=== PATIENT | male | born 1970 | race Caucasian/White ===

== ENCOUNTER 2017-11-07 04:11 | Emergency (ER) | payer BC ==
[2017-11-07 04:19] VITALS: BP 167/97; PULSE 76; RESP 16; TEMP 99.1
--- NOTE | 2017-11-07 04:38 | XR ---
EXAM: XR Chest, 2 Views CLINICAL HISTORY: Reason: Pain TECHNIQUE: Frontal and lateral views of the chest. COMPARISON: No relevant prior studies available. FINDINGS: Lungs: Unremarkable. No consolidation. Pleural space: Unremarkable. No pneumothorax. Heart: Unremarkable. No cardiomegaly. Mediastinum: Unremarkable. Bones/joints: Unremarkable. IMPRESSION: Normal chest x-rays.
--- NOTE | 2017-11-07 04:42 | ED ---
General Adult HPI - General Chief complaint: Fall Stated complaint: fall,arm/rib injury Time Seen by Provider: 11/07/17 04:40 Source: patient, RN notes reviewed, old records reviewed Mode of arrival: ambulatory Limitations: no limitations - History of Present Illness Initial comments: This is a 47-year-old male status post fall fall with left-sided rib pain. No loss of consciousness about is a no significant source of breath left-sided rib pain currently. No recent travel or known sick contacts - Related Data Allergies Allergy/AdvReac Type Severity Reaction Status Date / Time No Known Allergies Allergy Verified 11/07/17 04:19 Review of Systems ROS Statement: Those systems with pertinent positive or pertinent negative responses have been documented in the HPI. ROS Other: All systems not noted in ROS Statement are negative. Past Medical History Past Medical History: No Reported History History of Any Multi-Drug Resistant Organisms: None Reported Past Surgical History: Hernia Repair Past Psychological History: No Psychological Hx Reported Smoking Status: Former smoker Past Alcohol Use History: None Reported Past Drug Use History: Marijuana General Exam - General Exam Comments Initial Comments: Left rib pain Limitations: no limitations General appearance: alert, in no apparent distress Head exam: Present: atraumatic, normocephalic, normal inspection Eye exam: Present: normal appearance, PERRL, EOMI. Absent: scleral icterus, conjunctival injection, periorbital swelling ENT exam: Present: normal exam, mucous membranes moist Neck exam: Present: normal inspection. Absent: tenderness, meningismus, lymphadenopathy Respiratory exam: Present: normal lung sounds bilaterally. Absent: respiratory distress, wheezes, rales, rhonchi, stridor Cardiovascular Exam: Present: regular rate, normal rhythm, normal heart sounds. Absent: systolic murmur, diastolic murmur, rubs, gallop, clicks GI/Abdominal exam: Present: soft, normal bowel sounds. Absent: distended, tenderness, guarding, rebound, rigid Extremities exam: Present: normal inspection, full ROM, normal capillary refill. Absent: tenderness, pedal edema, joint swelling, calf tenderness Back exam: Present: normal inspection Neurological exam: Present: alert, oriented X3, CN II-XII intact Psychiatric exam: Present: normal affect, normal mood Skin exam: Present: warm, dry, intact, normal color. Absent: rash Course Vital Signs 11/07/17 04:15 Temperature 99.1 F Pulse Rate 76 Respiratory 16 Rate Blood Pressure 167/97 O2 Sat by Pulse 99 Oximetry - Reevaluation(s) Reevaluation #1: 11/07/17 04:41 Patient is in no acute distress Medical Decision Making - Medical Decision Making 47-year-old ER for evaluation. Patient is ER for evaluation of left rib fracture. Left rib pain. X-ray negative. Patient can be discharged home - Radiology Data Radiology results: report reviewed (Chest x-ray is negative), image reviewed Disposition Clinical Impression: Fall, Contusion of rib on left side Disposition: HOME SELF-CARE Instructions: Fall Prevention for Older Adults (ED), Rib Contusion (ED) Referrals: Mike Griffiths MD [Primary Care Provider] - 1-2 days
== END 2017-11-07 04:54 | disposition home or self-care (01) ==
LOC: EC 04:11
DX: S20.212A Contusion of left front wall of thorax, initial encounter (principal); Z87.891 Personal history of nicotine dependence; W00.0XXA Fall on same level due to ice and snow, initial encounter; Y93.01 Activity, walking, marching and hiking
CPT/HCPCS: 71020; 99284

== ENCOUNTER 2021-02-13 14:13 | Emergency (ER) | payer BC ==
[2021-02-13 14:31] VITALS: BP 127/74; PULSE 100; RESP 20; TEMP 97.9
[2021-02-13] MEDS ORDERED: BACITRACIN OINT 1 EACH PACKET TOPICAL ONE (15:19)
[2021-02-13] MEDS ORDERED: LIDOCAINE 1% INJ 10MG/ML (20 ML MDV) SQ ONE (15:19)
--- NOTE | 2021-02-13 15:23 | ED ---
Wound/Laceration HPI - General Chief Complaint: Wound/Laceration Stated Complaint: Lip Lac Time Seen by Provider: 02/13/21 15:00 Source: patient, family Mode of arrival: ambulatory - History of Present Illness Initial Comments: Patient is a 50-year-old male presenting to the emergency Department with complaints of a laceration to his lower lip. Patient states she was out in the [place] cutting some wood when he tripped and he fell forward and a stick cut his lower lip. He denies being on blood thinners, bleeding is controlled at this time. This happened about 1 hour prior to arrival. He is up-to-date with his tetanus vaccine, he had 3 years ago. He has no further complaints at this time. - Related Data Allergies Allergy/AdvReac Type Severity Reaction Status Date / Time No Known Allergies Allergy Verified 02/13/21 14:31 Review of Systems ROS Statement: Those systems with pertinent positive or pertinent negative responses have been documented in the HPI. ROS Other: All systems not noted in ROS Statement are negative. Past Medical History Past Medical History: Hypertension History of Any Multi-Drug Resistant Organisms: None Reported Past Surgical History: Hernia Repair Past Psychological History: No Psychological Hx Reported Smoking Status: Never smoker Past Alcohol Use History: Occasional Past Drug Use History: Marijuana General Exam - General Exam Comments Initial Comments: GENERAL: Patient is well-developed and well-nourished. Patient is nontoxic and in no acute distress. HEAD: Atraumatic, normocephalic. EYES: Pupils equal round and reactive to light, extraocular movements intact, sclera anicteric, conjunctiva are normal. Eyelids were unremarkable. ENT: Nares patent, oropharynx clear without exudates. Moist mucous membranes. NECK: Normal range of motion, supple without lymphadenopathy or JVD. LUNGS: Unlabored respirations. Breath sounds clear to auscultation bilaterally and equal. No wheezes rales or rhonchi. HEART: Regular rate and rhythm without murmurs, rubs or gallops. ABDOMEN: Soft, nontender, normoactive bowel sounds. No guarding, no rebound. No masses appreciated. : Deferred MUSCULOSKELETAL: Normal extremities with adequate strength and normal range of motion, no pitting or edema. No clubbing or cyanosis. NEUROLOGICAL: Patient is alert and oriented x 3. Motor and sensory are also intact. Cranial nerves II through XII grossly intact. Symmetrical smile. Normal speech, normal gait. PSYCH: Normal mood, normal affect. SKIN: Warm, Dry, normal turgor, no rashes. Patient has a 1 cm laceration that is vertical in nature on the left lower lip, it does cross the vermilion border. Course Vital Signs 02/13/21 14:29 Temperature 97.9 F Pulse Rate 100 Respiratory 20 Rate Blood Pressure 127/74 O2 Sat by Pulse 99 Oximetry Procedures - Laceration Laceration #1 Consent Obtained: verbal consent Indication: laceration Site: lip (Left lower lip) Size (cm): 1 Description: linear, involves luis miguel border Depth: simple, single layer Anesthetic Used: lidocaine 1% Anesthesia Technique: local infiltration Amount (mls): 2 Pre-repair: irrigated extensively Type of Sutures: nylon Size of Sutures: 6-0 Number of Sutures: 3 Technique: simple, interrupted Patient Tolerated Procedure: well Medical Decision Making - Medical Decision Making Patient is a 50-year-old male presenting with a 1 cm laceration to his left lower lip. Bleeding is controlled. He is up-to-date with his tetanus vaccine. Patient's wound was cleaned, closed with 3, 6-0 sutures. Patient tolerated procedure well. He will have sutures removed in 5-7 days. He is stable for discharge. Case discussed with Dr. Mathis. Disposition Clinical Impression: Laceration of vermilion border of lower lip Disposition: HOME SELF-CARE Condition: Stable Instructions (If sedation given, give patient instructions): Care For Your Stitches (ED) Additional Instructions: Please return to the Emergency Department if symptoms worsen or any other concerns. Stitches need to be removed in 5-7 days. Keep area clean and dry. Apply topical antibiotic. Is patient prescribed a controlled substance at d/c from ED?: No Referrals: Mike Griffiths MD [Primary Care Provider] - 1-2 days Time of Disposition: 15:54
== END 2021-02-13 16:00 | disposition home or self-care (01) ==
LOC: EC 14:13
DX: S01.511A Laceration without foreign body of lip, initial encounter (principal); I10 Essential (primary) hypertension; F12.90 Cannabis use, unspecified, uncomplicated; W01.0XXA Fall on same level from slipping, tripping and stumbling without subsequent striking against object, initial encounter
CPT/HCPCS: 99283; J2001